=== PATIENT | female | born 1975 | race Caucasian/White ===

== ENCOUNTER 2018-03-22 19:48 | Emergency (ER) | payer OTHER ==
[2018-03-22 20:24] VITALS: BP 118/80
--- NOTE | 2018-03-22 20:45 | UC ---
Skin Complaint HPI - HPI Summary HPI Summary: 42 year old woman here with a chief complaint of rash. Rash started in the last 1 day. She had been in [place] and noticed some itching in the left shoulder left upper arm and left lower face. She noticed a rash that broke out they're itchy and she scratches them and some clear fluid comes out. She does feel an ache in that area. No fevers or chills. No rash anywhere else no difficulty breathing or swallowing. No known allergic contact. - History of Current Complaint Chief Complaint: UCSkin Time Seen by Provider: 03/22/18 20:27 Stated Complaint: BUG BITES Hx Last Menstrual Period: 03/08/18 Pain Intensity: 0 - Allergy/Home Medications Allergies/Adverse Reactions: Allergies Allergy/AdvReac Type Severity Reaction Status Date / Time No Known Allergies Allergy Verified 03/22/18 20:24 Review of Systems Constitutional: Negative Skin: Rash - SEE HPI Eyes: Negative ENT: Negative Respiratory: Negative Cardiovascular: Negative Gastrointestinal: Negative Motor: Negative Neurovascular: Negative Musculoskeletal: Negative Neurological: Negative Psychological: Negative Is Patient Immunocompromised?: No All Other Systems Reviewed And Are Negative: Yes PMH/Surg Hx/FS Hx/Imm Hx Endocrine History: Hypothyroidism - Surgical History Surgical History: Yes Surgery Procedure, Year, and Place: breast reduction - Family History Known Family History: Positive: Hypertension - Social History Alcohol Use: Occasionally Substance Use Type: None Smoking Status (MU): Never Smoked Tobacco Physical Exam Triage Information Reviewed: Yes Appearance: Well-Appearing, No Pain Distress, Well-Nourished Vital Signs: Initial Vital Signs Temp 98.5 F 03/22/18 20:18 Pulse 67 03/22/18 20:18 Resp 12 03/22/18 20:18 BP 118/80 03/22/18 20:18 Pulse Ox 98 03/22/18 20:18 Vital Signs Reviewed: Yes Eye Exam: Normal Eyes: Positive: Conjunctiva Clear Neck exam: Normal Neck: Positive: Supple Respiratory: Positive: No respiratory distress Musculoskeletal Exam: Normal Musculoskeletal: Positive: Strength Intact, ROM Intact Neurological Exam: Normal Neurological: Positive: Alert, Muscle Tone Normal Psychological Exam: Normal Psychological: Positive: Age Appropriate Behavior Skin: Positive: Other - Left lower jaw and the left triceps area there is a rash that has straw-colored drainage and surrounding erythema and slightly firm. The one on the arm has some small vesicles. Course/Dx - Course Course Of Treatment: I discussed the different possibilities for the rash. Shingles is a possibility therefore we will treat with an antiviral. Insect bites that have become infected or another possibility therefore we'll treat with an antibiotic topical and by mouth. Possibility of allergic reaction exist however at first a rather treat for any viral or bacterial cause. If the patient does not improve she should get rechecked and consider steroid at that time. Follow-up with primary care doctor return sooner if needed. - Diagnoses Provider Diagnoses: RASH Discharge - Sign-Out/Discharge Documenting (check all that apply): Patient Departure All imaging exams completed and their final reports reviewed: No Studies - Discharge Plan Condition: Stable Disposition: HOME Prescriptions: Cephalexin CAP* [Keflex CAP*] 500 mg PO QID #40 cap Valacyclovir HCl [Valacyclovir] 1,000 mg PO 21 #21 tablet Patient Education Materials: Shingles (ED), Acute Rash (ED) Referrals: Mp Taylor MD [Primary Care Provider] - Additional Instructions: FOLLOW UP WITH YOUR DOCTOR IF NOT COMPLETELY IMPROVED. GET RECHECKED FOR ANY WORSENING OF YOUR CONDITION OR QUESTIONS OR CONCERNS. - Billing Disposition and Condition Condition: STABLE Disposition: Home
== END 2018-03-22 20:50 | disposition home or self-care (01) ==
LOC: UCEAST 19:48
DX: R21 Rash and other nonspecific skin eruption (principal)
CPT/HCPCS: 99212; G0463